=== PATIENT | female | born 1945 | race Caucasian/White ===

== ENCOUNTER → 2019-12-28 09:22 | Outpatient (BNVA) | payer OTHER, SELFPAY | PROVIDERS: PCP Internal Medicine; Referring Provider Internal Medicine; Visit Provider Obstetrics & Gynecology | DX: Z76.89 Persons encountering health services in other specified circumstances (principal) ==

== ENCOUNTER → 2021-01-30 08:20 | Outpatient (BNVA) | payer OTHER, SELFPAY | PROVIDERS: PCP Internal Medicine; Visit Provider Obstetrics & Gynecology ==

== ENCOUNTER → 2022-05-07 11:38 | Outpatient (BNVA) | payer OTHER, SELFPAY | PROVIDERS: PCP Internal Medicine; Visit Provider Obstetrics & Gynecology | DX: M81.0 Age-related osteoporosis without current pathological fracture (principal) | CPT/HCPCS: 99212 ==

== ENCOUNTER 2023-02-09 09:53 | Outpatient (AMB) | payer OTHER, SELFPAY ==
[2023-02-09 09:57] VITALS: BP 128/72; BMI 23.4
--- NOTE | 2023-02-09 09:57 | MHC.OFFVIS ---
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 Last Pap smear was in 2011 was negative, no history of abnormal Pap smear last 25 years.? Last mammogram was a year ago Last colonoscopy was 5 years ago, the patient is due for a screening colonoscopy , had a negative Cologuard this year an will be scheduling a screening colonoscopy soon. Last DEXA scan was in 04/16 which showed a T-score at the spine in femur level 1.3/1.9 respectively. BMD at this fine level was +than% from baseline and +2.8% from previous, at the femur level was -6.4 from baseline and-3.7 from previous DEXA scan. Ten year FRAX risk for major osteoporosis and fracture was 13/3.2%, the patient was prescribed alendronate and developed bone pain at the side effects, then was referred to Rheumatology but the appointment was canceled [facility] Medical History High cholesterol History of skin cancer Family History Father Colon cancer Mother Pancreatic cancer Social History Alcohol intake: never Patient Tobacco Use Status: Never used Tobacco Patient : No Sexual orientation: Straight/Heterosexual Gender identity: Female Female Reproductive History Menstrual Age of Menarche: 10 control method: none Total pregnancies: 0 Date of last pap smear: 10/16/11 (negative) Date of last Bone Density Screenin04/01/22 Review of Systems Const All systems reviewed & are unremarkable except as noted in HPI and below Card Reports as per HPI Resp Reports as per HPI GI Reports as per HPI and Reports no additional complaints Reports as per HPI Physical Exam Vital Signs: Last Vital Signs BP 128/72 02/09/23 09:57 BMI result Body Mass Index 23.4 Const General: cooperative, healthy appearing and comfortable Chest Chest palpation & inspection: normal inspection of the chest and normal palpation of entire chest wall Breast/axilla inspection: normal inspection of the breasts and normal inspection of the axillae Breast/axilla palpation: normal palpation of the breasts, normal palpation of the axillae and no axillary lymphadenopathy Resp Effort & Inspection: normal respiratory effort Auscultation: clear to auscultation bilaterally Percussion: percussion normal Cardio Palpation: normal PMI Rate: regular rate Rhythm: regular rhythm Heart sounds: no murmurs and no rubs Peripheral pulses: Peripheral pulses 2+ throughout GI Inspection: Yes normal to inspection Palpation (GI): Soft to palpation, nontender, no guarding, not rigid and No hepatosplenomegaly present Percussion: Yes normal to percussion Auscultation: normal bowel sounds Rectal Exam - Female: deferred General: Yes bladder normal to palpation External Female Exam: No lesion Speculum Exam - Vagina: normal appearance of the vagina, normal palpation, normal vaginal discharge and not erythematous Speculum Exam - Cervix: normal appearance of the cervix and normal palpation Bimanual exam- vagina & uterus: normal bimanual exam, normal palpation, uterine size normal, bladder normal to palpation, consistency normal and normal palpation Bimanual Exam- Adnexa, other: normal adnexae, no masses and no tenderness Assessment & Plan Assessment & Plan (1) Well woman exam: Code(s): Z01.419 - Encounter for gynecological examination (general) (routine) without abnormal findings Plan: Co testing not indicated since the patient 's age is above 65 with no history of abnormal Pap smears last 25 years. Counseled the patient about the recommended dietary allowance of 1200 mg of Calcium & 800 IU of vitamin D. Instruction given the patient to schedule her next screening Mammogram. The patient was instructed to perform monthly self-breast exams and to schedule a 2 week DEXA scan follow-up appointment and an annual exam in a year; All questions answered and the patient verbalized understanding. (2) At risk of fracture due to osteoporosis: Code(s): M81.0 - Age-related osteoporosis without current pathological fracture; Z91.89 - Other specified personal risk factors, not elsewhere classified Plan: Discussed with the patient the DEXA results and FRAX risk. Since risk of fracture above 3% explained to the patient that there is an indication for treatment for NOF guidelines. Discussed with the patient all the options for therapeutic treatment including mechanism of actions, risks and benefits of Bisphosphonates (benefits=osteoporosis prevention; Risks=GERD, osteonecrosis of jaw), Raloxifene, (benefits=osteoporosis prevention and breast ca risk reduction; Risks=DVT), Forteo. Since the patient develops side effects on alendronate, recommended for the patient to see Rheumatology, referral is in place, the patient requested to call back to set up rheumatology appointment, understands indication 40 therapeutic option to decrease the risk of hip fracture lines potential consequences. Also Caltrate+D 600 mg x2/day was recommended to the patient. Orders: Orders MM tomosynthesis screening BI Today Z12.31 - Encounter for screening mammogram for malignant neoplasm of breast Coding Level of Care Code Est Pt Prev Care >65y(52418) Diagnoses Well woman exam Z01.419 At risk of fracture due to osteoporosis M81.0; Z91.89
== END 2023-02-09 13:01 | disposition home or self-care (01) ==
PROVIDERS: Visit Provider Obstetrics & Gynecology
DX: Z01.419 Encounter for gynecological examination (general) (routine) without abnormal findings (principal); M81.0 Age-related osteoporosis without current pathological fracture; Z91.89 Other specified personal risk factors, not elsewhere classified
CPT/HCPCS: 99397

== ENCOUNTER → 2023-02-09 09:53 | Outpatient (BNVA) | payer OTHER, SELFPAY | PROVIDERS: Visit Provider Obstetrics & Gynecology ==

== ENCOUNTER 2024-02-29 09:38 | Outpatient (AMB) | payer OTHER, SELFPAY ==
--- NOTE | 2024-02-29 09:43 | MHC.OFFVIS ---
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 Last Pap smear was in 2011 was negative, no history of abnormal Pap smear last 25 years.? Last mammogram was a year ago, no records available but while negative according to the patient. Last colonoscopy was 5 years ago, the patient is due for next screening colonoscopy. Last DEXA scan was 2 years ago [facility] Medical History High cholesterol History of skin cancer Family History Father Colon cancer Mother Pancreatic cancer Social History Alcohol intake: never Patient Tobacco Use Status: Never used Tobacco Sexual orientation: Straight/Heterosexual Gender identity: Female Female Reproductive History Menstrual Age of Menarche: 10 Review of Systems Const All systems reviewed & are unremarkable except as noted in HPI and below Card Reports as per HPI Resp Reports as per HPI GI Reports as per HPI and Reports no additional complaints Reports as per HPI Physical Exam Vital Signs: Last Vital Signs BP 120/68 02/29/24 09:47 BMI result Body Mass Index 24.0 Const General: cooperative, healthy appearing and comfortable Chest Chest palpation & inspection: normal inspection of the chest and normal palpation of entire chest wall Breast/axilla inspection: normal inspection of the breasts and normal inspection of the axillae Breast/axilla palpation: normal palpation of the breasts, normal palpation of the axillae and no axillary lymphadenopathy Resp Effort & Inspection: normal respiratory effort Auscultation: clear to auscultation bilaterally Percussion: percussion normal Cardio Palpation: normal PMI Rate: regular rate Rhythm: regular rhythm Heart sounds: no murmurs and no rubs Peripheral pulses: Peripheral pulses 2+ throughout GI Inspection: Yes normal to inspection Palpation (GI): Soft to palpation, nontender, no guarding, not rigid and No hepatosplenomegaly present Percussion: Yes normal to percussion Auscultation: normal bowel sounds Rectal Exam - Female: deferred General: Yes bladder normal to palpation External Female Exam: No lesion Speculum Exam - Vagina: normal appearance of the vagina, normal palpation, normal vaginal discharge and not erythematous Speculum Exam - Cervix: normal appearance of the cervix and normal palpation Bimanual exam- vagina & uterus: normal bimanual exam, normal palpation, uterine size normal, bladder normal to palpation, consistency normal and normal palpation Bimanual Exam- Adnexa, other: normal adnexae, no masses and no tenderness Assessment & Plan Assessment & Plan (1) Well woman exam: Code(s): Z01.419 - Encounter for gynecological examination (general) (routine) without abnormal findings Category: Medical Plan: Co testing not indicated since the patient 's age is above 65 with no history of abnormal Pap smears last 25 years. Counseled the patient about the recommended dietary allowance of 1200 mg of Calcium & 800 IU of vitamin D. Mammogram ordered. Counseled the patient about the indication for screening colonoscopy , all pros and cons risks and benefits of the procedure were discussed with the patient, the patient is to think about it and get back to us. Will order DEXA scan . The patient was instructed to perform monthly self-breast exams and to schedule a 2 week DEXA scan follow-up appointment and an annual exam in a year; All questions answered and the patient verbalized understanding. Orders: Orders XR DEXA axial skeleton Today Z78.0 - Asymptomatic menopausal state MM tomosynthesis screening BI Today Z12.31 - Encounter for screening mammogram for malignant neoplasm of breast Coding Level of Care Code Est Pt Prev Care >65y(08587) Diagnoses Well woman exam Z01.419
[2024-02-29 09:47] VITALS: BP 120/68; BMI 24.0
== END 2024-02-29 10:23 | disposition home or self-care (01) ==
LOC: HO.HWS 09:38
PROVIDERS: PCP Internal Medicine; Visit Provider Obstetrics & Gynecology
DX: Z01.419 Encounter for gynecological examination (general) (routine) without abnormal findings (principal)
CPT/HCPCS: 99397; 99459

== ENCOUNTER → 2024-02-29 09:38 | Outpatient (BNVA) | payer OTHER, SELFPAY | PROVIDERS: PCP Internal Medicine; Visit Provider Obstetrics & Gynecology | DX: Z01.419 Encounter for gynecological examination (general) (routine) without abnormal findings (principal); Z78.0 Asymptomatic menopausal state | CPT/HCPCS: 99397; 99459 ==

== ENCOUNTER → 2024-05-15 10:57 | Outpatient (BNVA) | payer OTHER, SELFPAY | PROVIDERS: PCP Internal Medicine; Visit Provider Obstetrics & Gynecology ==

== ENCOUNTER 2024-05-25 09:28 | Outpatient (AMB) | payer OTHER, SELFPAY ==
--- NOTE | 2024-05-25 09:28 | MHC.OFFVIS ---
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 T score @ spine and femoral Neck respectively were=+1.8 /-1.9and 10 year FRAX risk = 144.3.7% for severe osteoporosis and fracture. The patient was started on alendronate 2 years ago and developed severe bone pain and discontinued it PFSH Medical History High cholesterol History of skin cancer Family History Father Colon cancer Mother Pancreatic cancer Social History Alcohol intake: never Patient Tobacco Use Status: Never used Tobacco Sexual orientation: Straight/Heterosexual Gender identity: Female Female Reproductive History Menstrual Age of Menarche: 10 Review of Systems Const All systems reviewed & are unremarkable except as noted in HPI and below Reports as per HPI and Reports no additional complaints GI Reports no additional complaints Reports no additional complaints Telehealth Telehealth Telehealth Platform: Telephone Location of provider rendering services: practice address Location of patient: address on file Patient Identification confirmed using: Name, : Yes Telehealth method: video Patient verbally consented to treatment: Yes Patient verbally consented to billing insurance company: Yes Patient informed of any privacy concerns related to visit: Yes Minutes spent on Phone/Video with Pt.: 10 Assessment & Plan Assessment & Plan (1) High risk for fracture due to osteoporosis by DEXA scan: Code(s): M81.0 - Age-related osteoporosis without current pathological fracture Category: Medical Plan: Discussed with the patient the results of DEXA scan with a FRAX fracture of 3.7% is an indication for therapeutic treatment. Since the patient developed bone pain related to alendronate, recommended to the patient the rheumatology referral (placed). All questions answered, the patient verbalized understanding. Instructed the patient to call our office back in case a referral appointment is not scheduled, missed or canceled so that we will assist on rescheduling another appointment, the patient verbalized understanding agreed with the plan. I spent a total of 20 minutes reviewing the chart, talking to the patient via video and documenting in the medical record. Orders: Referrals Rheumatology Referral M81.0 - Age-related osteoporosis without current pathological fracture Coding Level of Care Code Tele Est Pt Level 3 (55426) Diagnoses High risk for fracture due to osteoporosis by DEXA scan M81.0
--- OUTSIDE RECORDS SUMMARY | 2024-05-25 09:56 | XMS_ITS ---
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 Phone iTm Collins MD Primary Care Provider Jim Mederos Unavailable [phone] Allergies No Known Allergies REASON FOR VISIT At Risk Footcare, Painful Nail(s) aggrevated by shoes and causing difficulty standing/walking., Skin Problem Medications Medication SIG (Take, Route, Frequency, Duration) Notes Start Date End Date Status Ciclopirox Olamine 0.77 % 1 application Externally Twice a day to skin of feet including between the toes for 30 days Active Celecoxib 200 MG 1 capsule with food Orally Once a day Active Rosuvastatin Calcium 5 MG 1 tablet Orally Once a day Active Social History Tobacco Use: Social History Observation Description Date Details (start date - stop date) Never Smoker NA - NA Tobacco Use/Smoking Question Answer Notes Are you a: nonsmoker Additional Findings: Tobacco Non-User Current no n-smoker Tobacco use other than smoking: Question Answer Notes Are you an other tobacco user? No Vital Signs Height 5ft 2in in 12/10/2023 Weight 125 lbs 12/10/2023 BMI 22.86 kg/m2 12/10/2023 Procedures Procedure Date Ordered Date Performed Result Body Sit e 36358-GSSNFUB NAIL, 1-5 12/10/2023 N/A 13920-QNPW SKIN LESIONS, OVER 4 12/10/2023 N/A W8416-NOWBWSBT DYSTROPHIC NAILS ANY # 12/10/2023 N/A Encounters Encounter Location Date Provider Diagnosis [facility] [address] [place] [address] 12/10/2023 Jim Campoverde Atherosclerosis of [place] artery of both lower extremities, with unspecified presence of clinical manifestation I70.203 ; Tinea unguium B35.1 ; Pain in right toe(s) M79.674 ; Pain in left toe(s) M79.675 and Tinea pedis of both feet B35.3 Assessments Encounter Date Diagnosis (ICD Code) Assessment Notes Treatment Notes Treatment Clinical Notes Section Notes 12/10/2023 Atherosclerosis of [place] artery of both lower extremities, with unspecified presence of clinical manifestation (ICD-10 - I70.203) 12/10/2023 Tinea unguium (ICD-10 - B35.1) 12/10/2023 Pain in right toe(s) (ICD-10 - M79.674) 12/10/2023 Pain in left toe(s) (ICD-10 - M79.675) 12/10/2023 Tinea pedis of both feet (ICD-10 - B35.3) Plan Of Treatment Medication Medication Name Sig Start Date Stop Date Notes Ciclopirox Olamine 0.77 % 1 application Externally Twice a day to skin of feet including between the toes for 30 days Pending Test Test Name Order Date 93077-WJFOSYY NAIL, 1-5 12/10/2023 36765-MPTM SKIN LESIONS, OVER 4 12/10/19 24 W1189-TWOFUQLX DYSTROPHIC NAILS ANY # Next Appt Details Follow Up: prn, Reason: Provider Name:Jim Vick Gilles , 06/16/2024 11:15:00 AM, [address] [place], [address], Procedure Notes * Category Sub-Category Detail Notes Keratoma Treatment Parring or Cutting o f Benign Hyperkeratotic Lesion(s) (-57) More than 4 Lesions - The Benign hyperkeratotic lesions, as described above were pared, and/or cut utilizing a sterile 15 blade, tissue nippers, and/or dremel - 17752 , Q8 Debride Nails 1-5 Procedure: Performance of this nail treatment by a nonprofessional would put this patients foot and overall health at risk. Therefore, nail debridement was performed extensively to reduce/remove overall nail length, girth, thickness, subungual debris, and necrotic tissue, by manual and/or electrical means through the use of a nail nipper and/or dremel-type glaze grinder, to a more viable healthy nail plate or bed tissue 1-5. Silver nitrate used for any petechial bleeding as necessary. Definitive antifungal treatment options have been reviewed and discussed with the patient. The patient chooses, no pharmaceutical tx - 04735 Nail Reduction Nail Reduction (-27) Trimming o f dystrophic nails performed to reduce/remove overall nail length and girth, by manual and electrical means with use of a nail nipper and/or dremel, to more viable healthy nail plate or bed tissue, any number - G0127 , Q8 Progress Notes * Antoinette FISHER MDOB: (78 yo F)Acc No.[id number]:12/10/2023 Progress Note Patient:?Antoinette FISHER Provider:?Jim Campoverde DPM :1945???Age:78 Y???Sex:Female D ate:12/10/2023 Address:[address] [place], [place] [id number] Pcp:Tim Collins MD Subjective: * Chief Complaints: * ???At Risk FootcarePainful N ail(s) aggrevated by shoes and causing difficulty standing/walking.Skin Problem * HPI: ???At Risk footcare:?Pt States Last PCP Visit:?Date?11/23/2023 ???Skin problems:?Nature:?scaling , redness.?Location:?B/L .?Duration:?several days.?Course:?worse.? * ROS:?General/Constitutional:?Nausea?denies.?Vomiting?denies.?Hunger Thirst?denies.?Loss appetite?denies.?Chills?denies.?Fatigue?denies.?Fever?denies.?Night Sweats?denies.?Unexplained weight loss?denies.?Unexplained weight gain?denies.?HEENTM:?Dentures?denies.?Dizziness?denies.?Glasses/contacts?denies.?Retinopathy?de nies.?Blurred/double vision?denies.?TMJ?denies.?Discharge/drainage?denies.?Implants?denies.?Sore throat?denies.?Dental implants?denies.?Hard of hearing ?denies.?Difficulty chewing/swallowing/speaking?denies.?Nose bleeds?denies.?Sore mouth?denies.?Respiratory:?On Oxygen?denies.?Pneumonia/pleurisy?denies.?Bronchitis?denies.?Emphysema?denies.?C oughing?denies.?Cough blood?denies.?Shortness of breath?denies.?Wheezing?denies.?Cardiovascular:?Pacemaker?denies.?MVP?denies.?WPW?denies.?CHF?denies.?Heart attack?denies.?Septal defect?denies.?Rapid beat?denies.?Chest pain ?denies.?Atrial Fib.?denies.?Murmur/Palpitations?denies.?Gastrointestinal:?Hemorrhoids?denies.?Stomach/Abdominal pain?denies.?Dark blood stool?denies.?Irritable bowel ?denies.?Constipation?denies.?Diarrhea?denies.?Hematology:?Swelling?denies.?Clots?denies.?Varicose Veins?admits.?Bruising?denies.?Bleeding problem?denies.?Genitourinary:?Blood urine?denies.?Frequent/Painfu/urination/bladder control?denies.?Kidney stones?denies.?Infection (UTI)?denies.?Nephropathy?denies.?sex trans dis (STD)?denies.?Prostate?denies.?Musculoskeletal:?Hammertoes?admits.?Bunions?admits.?Back Pain?admits.?Muscle Cramps/ Resting?denies.?Muscle cramps / walking?denies.?Generalized aches and pains?admits.?Weakness?denies.?Integ.:?Joyce?denies.?Scars?denies.?Corns/calluses?admits.?Ingrown nails?admits.?Painful nails?admits.?Open Sores?denies.?Rashes?denies.?Neurologic:?Difficulty sleeping?denies.?Brain disorder?denies.?Numbness?denies.?Balance trouble?denies.?Confusion?denies.?Fainting/blackouts?denies.?Tingling?denies.?Tr emors?denies.? * Medical History:? * Surgical History:?Denies Pas t Surgical History * Hospitalization/Major Diagno stic Procedure:?Denies Past Hospitalization * Family History:?Mother: dece ased, Cancer, diagnosed with Family history of arthritis, Other malignant neoplasm of unspecified site.?Father: , Cancer, diagnosed with Other malignant neoplasm of unspecified site.?Spouse: .? * Social History:?Tobacco Use:?Tobacco Use/Smoking?Are you a:?nonsmoker ?Additional Findings: Tobacco Non-User?Current non-smoker ?Tobacco use other than smoking?Are you an other tobacco user??No ???Miscellaneous:?Caffeine: yes, frequency: , 1-2 cups per day. ?Exercise: yes, Line Dancing, Archery. ?Marital status: . ?Occupation: Retired. * Medications:?TakingRosuvasta tin Calcium 5 MG Tablet 1 tablet Orally Once a day Celecoxib 200 MG Capsule 1 capsule with food Orally Once a day Medication List reviewed and reconciled with the patientTaking Rosuvastatin Calcium 5 MG Tablet 1 tablet Orally Once a day Taking Celecoxib 200 MG Capsule 1 capsule with food Orally Once a day Medication List reviewed and reconciled with the patient * Allergies:?N.K.D.A.yes[Aller gies Verified] Objective: * Vitals:?Ht: 5ft 2in, Wt: 125 , BMI: 22.86, Shoe size: 7, Ht-cm: 157.48 cm, Wt-k.7 kg. * Examination: ???Vascular: ?DP PULSES (B):? 0/4, B/L.?PT PULSES (B):?1/4, B/L.?CAPILLARY FILL TIME:? delayed, all digits, B/L.?TROPHIC CONDITION-TEXTURE/ELASTICITY/TURGOR/HAIR GROWTH (B):? decreased, fragile, thin, skin, with sparse to absent hair growth, B/L.?TEMPERTURE GRADIENT (C):? decreased, cool to cool, proximal to distal, B/L.?PIGMENTATION:?mottled, B/L.?EDEMA (C):?absent, B/L.?CLAUDICATION (C):?denies, B/L.?REST PAIN:?denies, B/L.?Nails: ?NAILS are:?Elongated, overgrown, dystrophic, lytic, greater than 3mm thick, discolored and friable with crumbly malodorous subungual debris, with pain on palpation , T4 , T5 , T6, T7 , T9 , remaining nails are elongated, overgrown, dystrophic.?Dermatologic: ?SKIN FINDINGS:?Skin exam reveals Keratotic lesion(s) located at , Medial plantar , IPJ , TA , Medial plantar , IPJ , T5 , SUB MTH (s) , 1 , B/L , SUB MTH (s) , 2 , SUB MTH (s) , 5 , B/L , Skin shows sign(s) of, erythema, scaling, in a moccasin fashion, no fissure(s) present, B/L.? Assessment: * Assessment: 1.?Tinea unguium - B35.1???2 .?Atherosclerosis of [place] artery of both lower extremities, with unspecified presence of clinical manifestation - I70.203 (Primary)???3.?Pain in right toe(s) - M79.674???4.?Pain in left toe(s) - M79.675 ??5.?Tinea pedis of both feet - B35.3???Specify :Acute problem, Uncomplicated (3),Rx drug management (4)??? Plan: * Treatment: 2.?Tinea unguium?Procedure: 83823-IYXUMDK NAIL, 1-5 3.?Tinea pedis of both feet? Start Ciclopirox Olamine Cream, 0.77 %, 1 application, Externally, Twice a day to skin of feet including between the toes, 30 days, 60, Refills 2.?? * Procedures:?Debride Nails 1-5:?Procedure:?Performance of this nail treatment by a nonprofessional would put this patients foot and overall health at risk. Therefore, nail debridement was performed extensively to reduce/remove overall nail length, girth, thickness, subungual debris, and necrotic tissue, by manual and/or electrical means through the use of a nail nipper and/or dremel-type glaze grinder, to a more viable healthy nail plate or bed tissue 1-5. Silver nitrate used for any petechial bleeding as necessary. Definitive antifungal treatment options have been reviewed and discussed with the patient. The patient chooses, no pharmaceutical tx - 55388.?Keratoma Treatment:?Parring or Cutting of Benign Hyperkeratotic Lesion(s)?(-57) More than 4 Lesions - The Benign hyperkeratotic lesions, as described above were pared, and/or cut utilizing a sterile 15 blade, tissue nippers, and/or dremel - 85963 , Q8.?Nail Reduction:?Nail Reduction?(-27) Trimming of dystrophic nails performed to reduce/remove overall nail length and girth, by manual and electrical means with use of a nail nipper and/or dremel, to more viable healthy nail plate or bed tissue, any number - G0127 , Q8.? * Procedure Codes:?G0127 PARVEEN ING DYSTROPHIC NAILS ANY #, Modifiers: XS , [id number] DEBRIDE NAIL, 1-5, Modifiers: XS 26909 TRIM SKIN LESIONS, OVER 4, Modifiers: XS , Q8 * Preventive Medicine:? ??Counseling:?Discussion:?-13: Office or other outpatient visit for the evaluation and management of an established patient, which required a medically appropriate history and/or examination and LOW level of DECISION MAKING for: 1 STABLE ACUTE UNCOMPLICATED PROBLEM, 2 OR MORE MINOR PROBLEMS, OR 1 STABLE CHRONIC PROBLEM, THAT POSE(S) A LOW RISK FOR MORBIDITY/MORTALITY. The visit on the day of the encounter encompassed interpreting the data and educating the patient as to the nature of their condition, treatment options available according to their individual PMH, meds, allergies, and overall health/living conditions, as well as any potential risks or complications that may occur from a failure to adhere to, and participate in, the recommended course of therapy. The discussion included a complete verbal, and/or written explanation of the examination results, any x-rays taken, the proposed diagnosis, and outline of the treatment plan. A schedule for future care needs was also explained. The patient verbalized an understanding of the instructions at this time and agreed to be an active participant in their treatment. If the patient should think of any questions or concerns after the visit, I have encouraged the patient to call the office.?Tinea Pedis:?The patient was counseled on the diagnosis, potential etiologies, and treatment options for their skin condition. We discussed the risks and benefits of each option from performing no treatment, to utilizing OTC topical skin creams, prescription topical creams, customized compounded topical medications, and, if necessary, to utilize oral antifungal therapy. We discussed the advantages and disadvantages of each possible treatment and importance for adherence to all the recommended therapies for optimum success and avoid potential complications such as open sore/infection/possible hospitalization. We discussed the potential effectiveness of each topical preparation as well as each ones possible side effects and/or patient medication interactions if oral therapy is selected. Patient questions re: the advantages and disadvantages of each treatment choice, medication use/dosage, successful outcomes, and application consistency were reviewed and the patient verbalized that all answers were clearly understood. The patient was told they can help alleviate symptoms by utilizing moisture absorbant innersoles with activated charcoal and baking soda, applying antifungal sprays daily, aerating toe web spaces at night by putting cotton or lambs wool between the toes, alternating shoe gear daily if possible so they can dry out, changing socks at least once during the day, wearing well-ventilated shoes or sandals. The patient has decided to apply antifungal skin creams to their feet as directed. Rx was sent to their pharmacy at the time of visit.? ??Screening/Special Tests:?Fall Risk?Screening:?No falls in the past year ?FALLS: Screening for Future Fall Risk?Have you had any falls with injury in the past year??No * Follow Up:?prn * Images: * Sign off status: Completed true * Provider:?Jim Campoverde DPM Date:?2023 Generated for Catalina griffiths/Celestina/Jose on:?05/25/2024 09:56 AM EDT History and Physical Notes * HPI (History of Present Illness) Category Sub-Category Detail Notes Category Not es Skin problems Nature: scaling , redness Location: B/L Duration: several days Course: worse At Risk footcare Pt States Last PCP Visit: Date: 4 Examination Category Sub-Category Detail Notes Category Not es Dermatologic SKIN FINDINGS: Skin exam reveal s Keratotic lesion(s) located at , Medial plantar , IPJ , TA , Medial plantar , IPJ , T5 , SUB MTH (s) , 1 , B/L , SUB MTH (s) , 2 , SUB MTH (s) , 5 , B/L , Skin shows sign(s) of, erythema, scaling, in a moccasin fashion, no fissure(s) present, B/L Vascular DP PULSES (B): 0/4, B/L PT PULSES (B): 1/4, B/L CAPILLARY FILL TIME: delayed, all digits , B/L TEMPERTURE GRADIENT (C): decreased, cool to cool, proximal to distal, B/L TROPHIC CONDITION-TEXTURE/ELASTICITY/TURGOR/HAIR GROWTH (B): decreased, fragile, thin, skin, with spa rse to absent hair growth, B/L EDEMA (C): absent, B/L CLAUDICATION (C): denies, B/L REST PAIN: denies, B/L PIGMENTATION: mottled, B/L Nails NAILS are: Elongated, overg rown, dystrophic, lytic, greater than 3mm thick, discolored and friable with crumbly malodorous subungual debris, with pain on palpation , T4 , T5 , T6, T7 , T9 , remaining nails are elongated, overgrown, dystrophic
--- OUTSIDE RECORDS SUMMARY | 2024-05-25 09:56 | XMS_ITS | Patient Health Record ---
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071) Referring Provider First Name Tim Referring Provider Last Name Karina Referred [facility] Referred Provider Jim Campoverde Referred Address [address] [facility],[place], [place],[address], Referred Provider Specialty Podiatry Referral Priority Routine Medications Medication SIG (Take, Route, Frequency, Duration) Notes Start Date End Date Status Ciclopirox Olamine 0.77 % APPLY TWO TIME S A DAY TO SKIN OF FEET INCLUDING BETWEEN THE TOES for 30 Active Rosuvastatin Calcium 5 MG 1 tablet Orally Once a day Active Celecoxib 200 MG 1 capsule with food Orally Once a day Active Social History Tobacco Use: Social History Observation Description Date Details (start date - stop date) Never Smoker NA - NA Tobacco Use/Smoking Question Answer Notes Are you a: nonsmoker Additional Findings: Tobacco Non-User Current no n-smoker Alcohol Screen Question Answer Notes Did you have a drink contain ing alcohol in the past year? Yes How often did you have a dri nk containing alcohol in the past year? Monthly or less (1 point) Points 1 Interpretation Negative Tobacco use other than smoking: Question Answer Notes Are you an other tobacco user? No Problems Problem Type SNOMED Code ICD Code Onset Dates Problem Status W/U Status Risk Notes Problem Atherosclerosis of [place] arteries of the extremities (308320074362970) Atherosclerosis of [place] artery of both lower extremities, with unspecified presence of clinical manifestation (I70.203) Active confirmed Vital Signs Blood pressure diastolic 70 mm Hg 03/10/2024 Height 5ft 2in in 03/10/2024 Blood pressure systolic 116 mm Hg 03/10/2024 Weight 129 lbs 03/10/2024 BMI 23.59 kg/m2 03/10/2024 Procedures Procedure Date Ordered Date Performed Result Body Sit e 60135-GBWNXQX NAIL, 1-5 06/11/2023 N/A 08131-YAWU SKIN LESIONS, OVER 4 06/11/2023 N/A J0524-OASRCTGS DYSTROPHIC NAILS ANY # 06/11/2023 N/A 23721-UEOFTGG NAIL, 1-5 09/03/2023 N/A 81804-FACY SKIN LESIONS, OVER 4 09/03/2023 N/A X2443-FGXWSPEQ DYSTROPHIC NAILS ANY # 09/03/2023 N/A 70265-IAPZTJE NAIL, 1-5 12/10/2023 N/A 43470-JKGT SKIN LESIONS, OVER 4 12/10/2023 N/A X9290-CVDECAXE DYSTROPHIC NAILS ANY # 12/10/2023 N/A 70566-QEVCJEB NAIL, 1-5 03/10/2024 N/A 71188-FNCA SKIN LESIONS, OVER 4 03/10/2024 N/A D6296-OOJHTAAZ DYSTROPHIC NAILS ANY # 03/10/2024 N/A Encounters Encounter Location Date Provider Diagnosis [facility] [address] [place] [address] 06/11/2023 Jim Campoverde Atherosclerosis of [place] artery of both lower extremities, with unspecified presence of clinical manifestation I70.203 ; Tinea unguium B35.1 ; Pain in right toe(s) M79.674 and Pain in left toe(s) M79.[address] [address] 09/03/2023 Jim Gilles Atherosclerosis of [place] artery of both lower extremities, with unspecified presence of clinical manifestation I70.203 ; Tinea unguium B35.1 ; Pain in right toe(s) M79.674 and Pain in left toe(s) M79.[address] [address] 12/10/2023 Jim Gilles Atherosclerosis of [place] artery of both lower extremities, with unspecified presence of clinical manifestation I70.203 ; Tinea unguium B35.1 ; Pain in right toe(s) M79.674 ; Pain in left toe(s) M79.675 and Tinea pedis of both feet B35.[address] [address] 03/10/2024 Jim Gilles Atherosclerosis of [place] artery of both lower extremities, with unspecified presence of clinical manifestation I70.203 ; Tinea unguium B35.1 ; Pain in right toe(s) M79.674 ; Pain in left toe(s) M79.675 and Tinea pedis of both feet B35.3 Assessments Encounter Date Diagnosis (ICD Code) Assessment Notes Treatment Notes Treatment Clinical Notes Section Notes 06/11/2023 Tinea unguium (ICD-10 - B35.1) 06/11/2023 Atherosclerosis of [place] artery of both lower extremities, with unspecified presence of clinical manifestation (ICD-10 - I70.203) 09/03/2023 Tinea unguium (ICD-10 - B35.1) 09/03/2023 Atherosclerosis of [place] artery of both lower extremities, with unspecified presence of clinical manifestation (ICD-10 - I70.203) 12/10/2023 Tinea unguium (ICD-10 - B35.1) 12/10/2023 Atherosclerosis of [place] artery of both lower extremities, with unspecified presence of clinical manifestation (ICD-10 - I70.203) 03/10/2024 Tinea unguium (ICD-10 - B35.1) 03/10/2024 Atherosclerosis of [place] artery of both lower extremities, with unspecified presence of clinical manifestation (ICD-10 - I70.203) 12/10/2023 Pain in right toe(s) (ICD-10 - M79.674) 03/10/2024 Pain in right toe(s) (ICD-10 - M79.674) 06/11/2023 Pain in right toe(s) (ICD-10 - M79.674) 09/03/2023 Pain in right toe(s) (ICD-10 - M79.674) 09/03/2023 Pain in left toe(s) (ICD-10 - M79.675) 06/11/2023 Pain in left toe(s) (ICD-10 - M79.675) 12/10/2023 Pain in left toe(s) (ICD-10 - M79.675) 03/10/2024 Pain in left toe(s) (ICD-10 - M79.675) 03/10/2024 Tinea pedis of both feet (ICD-10 - B35.3) 12/10/2023 Tinea pedis of both feet (ICD-10 - B35.3) Plan Of Treatment Pending Test Test Name Order Date 33702-FNJHBJR NAIL, 1-12/11/2022 68945-TWOVKHG NAIL, 1-5 02/26/2023 29986-QOFKDHY NAIL, 1-5 06/11/2023 35574-BSKTKQU NAIL, 1-5 09/03/2023 22291-KJPJANK NAIL, 1-5 12/10/2023 01945-EQMHOCW NAIL, 1-5 03/10/2024 76995-PSDP SKIN LESIONS, OVER 4 03/10/19 25 34137-TTOJ SKIN LESIONS, OVER 4 12/10/19 24 41185-LNKL SKIN LESIONS, OVER 4 12/12/19 23 20140-NEEM SKIN LESIONS, OVER 4 09/03/19 24 50002-FJFB SKIN LESIONS, OVER 4 06/11/19 24 48092-KKGC SKIN LESIONS, OVER 4 02/26/19 24 M5929-KJAFEOYW DYSTROPHIC NAILS ANY # D1494-JATDHNUJ DYSTROPHIC NAILS ANY # C4130-QKUREVXN DYSTROPHIC NAILS ANY # H7179-EJZNXXRN DYSTROPHIC NAILS ANY # B3391-LFJUFIQS DYSTROPHIC NAILS ANY # H4075-YDEOLXMJ DYSTROPHIC NAILS ANY # Next Appt Details Provider Name:Jim Campoverde , 06/16/2024 11:15:00 AM, [address] [place] [address], [phone], Insurance Providers Payer Name Payer Address Payer Phone Subscriber Number Group Number Insured Name Patient Relationship to Insured Coverage Start Date Coverage End Date [facility] Plan [address] [place] [address] [id number] Antoinette Vyas Self - patient is the insured Medical (General) History Medical History History ICD Code Arthritis Back,Hip,and Knee pain Cataracts Osteoporosis Measles Mumps Chicken pox Cancer- skin CAD Surgical History Surgery Date(Month/Year)
--- OUTSIDE RECORDS SUMMARY | 2024-05-25 09:56 | XMS_ITS ---
Author Organization [facility] Address [address] [place] [address] Care Team Providers Care Perfumer Name Role Phone Tim Collins MD Primary Care Provider Jim Mederos Unavailable [phone] Encounters Encounter Location Date Provider Diagnosis [address] [address] 11/26/2023 Jim Campoverde Plan Of Treatment Next Appt Details Provider Name:Jim Campoverde , 06/16/2024 11:15:00 AM, [address] [place], [address], Progress Notes * Antoinette FISHER MDOB: (78 yo F)Acc No.[id number]:11/26/2023 Progress Note Patient:?Antoinette FISHER Provider:?Jim Campoverde DPM :1945???Age:78 Y???Sex:Female D ate:11/26/2023 Address: [address] [facility] [phone] Pcp:Tim Collins MD Subjective: * Chief Complaints: * ??? * Medical History:? Objective: * Vitals:? Assessment: Plan: * Treatment: * Images: * The named appointment provid er may or may not be the originator of this progress note, and it is not deemed complete until electronically signed by the appointment provider. Sign off status: Pending * Provider:?Jim Campoverde DPM Date:?2023 Generated for Catalina griffiths/Celestina/Jose on:?05/25/2024 09:56 AM EDT
--- OUTSIDE RECORDS SUMMARY | 2024-05-25 09:57 | XMS_ITS ---
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 Name Role Phone Tim Collins MD Primary Care Provider Jim Mederos Unavailable [phone] Allergies No Known Allergies REASON FOR VISIT At Risk Footcare, Painful Nail(s) aggrevated by shoes and causing difficulty standing/walking., Skin Problem Medications Medication SIG (Take, Route, Frequency, Duration) Notes Start Date End Date Status Rosuvastatin Calcium 5 MG 1 tablet Orally Once a day Active Ciclopirox Olamine 0.77 % 1 application Externally [...] No Vital Signs Height 5ft 2in in 03/10/2024 Weight 129 lbs 03/10/2024 BMI 23.59 kg/m2 03/10/2024 Blood pressure systolic 116 mm Hg 03/10/19 25 Blood pressure diastolic 70 mm Hg 025 Procedures Procedure Date Ordered Date Performed Result Body Sit e 87954-ETFXZMQ NAIL, 1-5 03/10/2024 N/A 62187-ZOOK SKIN LESIONS, OVER 4 03/10/2024 N/A O3706-OMEUXDYU DYSTROPHIC NAILS ANY # 03/10/2024 N/A Encounters Encounter Location Date Provider Diagnosis [facility] [address] [address] 03/10/2024 Jim Campoverde Atherosclerosis of apache artery of both lower extremities, with unspecified presence of clinical manifestation I70.203 ; Tinea unguium B35.1 ; Pain in right toe(s) M79.674 ; Pain in left toe(s) M79.675 and Tinea pedis of both feet B35.3 Assessments Encounter Date Diagnosis (ICD Code) Assessment Notes Treatment Notes Treatment Clinical Notes Section Notes 03/10/2024 Atherosclerosis of apache artery of both lower extremities, with unspecified presence of clinical manifestation (ICD-10 - I70.203) 03/10/2024 Tinea unguium (ICD-10 - B35.1) 03/10/2024 Pain in right toe(s) (ICD-10 - M79.674) 03/10/2024 Pain in left toe(s) (ICD-10 - M79.675) 03/10/2024 Tinea pedis of both feet (ICD-10 - B35.3) Plan Of Treatment Pending Test Test Name Order Date [id number] NAIL, 1-5 03/10/2024 72391-UBFT SKIN LESIONS, OVER 4 03/10/19 D1112-EKFESQBP DYSTROPHIC NAILS ANY # Next Appt Details Follow Up: prn, Reason: Provider Name:Jim Campoverde , 06/16/2024 11:15:00 AM, [address] [place] [address], [place], [address], Procedure Notes * Category Sub-Category Detail Notes Keratoma Treatment Parring or Cutting o f Benign Hyperkeratotic Lesion(s) (-57) More than 4 Lesions - Due to the at risk nature of the patients medical condition as documented in the exam findings, performance of this keratoderma treatment is medically necessary as its management by an unskilled/untrained nonprofessional would put this patients foot and overall health at risk. Therefore, the benign hyperkeratotic lesions, ( 8) in total, locations as stated and described in the exam ( Medial plantar , IPJ , TA , Medial plantar , IPJ , T5 , SUB MTH (s) , 1 , B/L , SUB MTH (s) , 2 , B/L, SUB MTH (s) , 5 , B/L), were pared, and/or cut utilizing a sterile 15 blade, tissue nippers, and/or power dremel instrumentation by the physician of record - 36562, Q8 Debride Nails 1-5 Procedure: Due to the cli nical pathology outlined in the exam findings, performance of this nail treatment is medically necessary as its management by an unskilled/untrained nonprofessional would put this patients foot and overall health at risk. Therefore, debridement to affected nail(s), as described in exam ( T4 , T5 , T6, T7 , T9 ), was performed exclusively by the physician of record to reduce/remove overall nail length, girth, thickness, subungual debris, and necrotic tissue, by manual and/or electrical means through the use of a nail nipper and/or dremel stylegrinder, to a more viable healthy nail plate or bed tissue 5 nails or fewer in number. Silver nitrate was used for any petechial bleeding as necessary. Definitive antifungal treatment options, both pharmaceutical and surgical, have been reviewed and discussed with the patient. The patient solely prefers the use of intermittent/as needed professional debridement services for their nail condition and understands that additional periodic treatments may be required as necessary to maintain effective symptomatic relief - 27441 Nail Reduction Nail Reduction (-27) Trimming o f all dystrophic nails - Due to the at risk nature of the patients medical condition as documented in the exam findings, performance of this nail treatment is medically necessary as its management by an unskilled/untrained nonprofessional would put this patients foot and overall health at risk. Therefore, the dystrophic nails, in locations as stated and described in the exam ( TA, T1, T2, T3, T8), were debrided by the phisician of record to reduce/remove overall nail length and girth, by manual and electrical means with use of a nail nipper and/or dremel, to more viable healthy nail plate or bed tissue - G0127, Q8 Progress Notes * Antoinette FISHER MDOB: (78 yo F)Acc No.[id number]:03/10/2024 Progress Notes Patient:?Antoinette FISHER Provider:?Jim Campoverde DPM :1945???Age:78 Y???Sex:Female D ate:03/10/2024 Address:[address] [id number] Pcp:Tim Collins MD Subjective: * Chief Complaints: * ???At Risk FootcarePainful N ail(s) aggrevated by shoes and causing difficulty standing/walking.Skin Problem * HPI: ???At Risk footcare:?Pt States Last PCP Visit:?Date?01/27/2024 ???Skin problems:?Treatments:?Medication (Ciclopirox Olamine 0.77 Cream), states adherence to recommended treatment application.? * ROS:?General/Constitutional:?Nausea?denies.?Vomiting?denies.?Hunger Thirst?denies.?Loss appetite?denies.?Chills?denies.?Fatigue?denies.?Fever?denies.?Night Sweats?denies.?Unexplained weight loss?denies.?Unexplained [...] Family History:?Mother: dece ased, Cancer, diagnosed with Other malignant neoplasm of unspecified site, Family history of arthritis.?Father: , Cancer, diagnosed with Other malignant neoplasm of unspecified site.?Spouse: .? * Social History:?Tobacco Use:?Tobacco Use/Smoking?Are you a:?nonsmoker ?Additional Findings: Tobacco Non-User?Current non-smoker ?Tobacco use other than smoking?Are you an other tobacco user??No * Medications:?TakingRosuvasta tin Calcium 5 MG Tablet 1 tablet Orally Once a day Celecoxib 200 MG Capsule 1 capsule with food Orally Once a day Ciclopirox Olamine 0.77 % Cream 1 application Externally Twice a day to skin of feet including between the toes Medication List reviewed and reconciled with the patientTaking Rosuvastatin Calcium 5 MG Tablet 1 tablet Orally Once a day Taking Celecoxib 200 MG Capsule 1 capsule with food Orally Once a day Taking Ciclopirox Olamine 0.77 % Cream 1 application Externally Twice a day to skin of feet including between the toes Medication List reviewed and reconciled with the patient * Allergies:?N.K.D.A.yes[Aller gies Verified] Objective: * Vitals:?Ht: 5ft 2in, Wt: 129 , BMI: 23.59, Shoe size: 7, BP: 116/70 mm Hg, Ht-cm: 157.48 cm, Wt-k.51 kg. * Examination: ???Vascular: ?DP PULSES (B):? [...] T5 , T6, T7 , T9 , all other nails not described with characteristics as possessing mycosis are elongated, overgrown, and dystrophic ( TA, T1, T2, T3, T8?).?Dermatologic: ?SKIN FINDINGS:?Skin exam reveals Keratotic lesion(s) located at , Medial plantar , IPJ , TA , Medial plantar , IPJ , T5 , SUB MTH (s) , 1 , B/L , SUB MTH (s) , 2 , B/L, SUB MTH (s) , 5 , B/L , Skin shows approximately 70-80 percent LESS, sign(s) of, erythema, scaling, in a moccasin fashion, no fissure(s) present, B/L.? Assessment: * Assessment: 1.?Tinea unguium - B35.1???2 .?Atherosclerosis of apache artery of both lower extremities, with unspecified presence of clinical manifestation - I70.203 (Primary)???3.?Pain in right toe(s) - M79.674???4.?Pain in left toe(s) - M79.675 ??5.?Tinea pedis of both feet - B35.3???Specify :Acute problem, Stable Response to treatment - Improvement??? Plan: * Treatment: 2.?Tinea unguium?Procedure: 88076-OSKOPIO NAIL, 1-5 * Procedures:?Debride Nails 1-5:?Procedure:?Due to the clinical pathology outlined in the exam findings, performance of this nail treatment is medically necessary as its management by an unskilled/untrained nonprofessional would put this patients foot and overall health at risk. Therefore, debridement to affected nail(s), as described in exam (?T4?,?T5?,?T6,?T7?,?T9?), was performed exclusively by the physician of record to reduce/remove overall nail length, girth, thickness, subungual debris, and necrotic tissue, by manual and/or electrical means through the use of a nail nipper and/or dremel stylegrinder, to a more viable healthy nail plate or bed tissue 5 nails or fewer in number. Silver nitrate was used for any petechial bleeding as necessary. Definitive antifungal treatment options, both pharmaceutical and surgical, have been reviewed and discussed with the patient. The patient solely prefers the use of intermittent/as needed professional debridement services for their nail condition and understands that additional periodic treatments may be required as necessary to maintain effective symptomatic relief - 97403.?Keratoma Treatment:?Parring or Cutting of Benign Hyperkeratotic Lesion(s)?(-57) More than 4 Lesions - Due to the at risk nature of the patients medical condition as documented in the exam findings, performance of this keratoderma treatment is medically necessary as its management by an unskilled/untrained nonprofessional would put this patients foot and overall health at risk. Therefore, the benign hyperkeratotic lesions, ( 8) in total, locations as stated and described in the exam (?Medial plantar?,?IPJ?,?TA?,?Medial plantar?,?IPJ?,?T5?,?SUB MTH (s)?,?1?,?B/L?,?SUB MTH (s)?,?2?,?B/L,?SUB MTH (s)?,?5?,?B/L), were pared, and/or cut utilizing a sterile 15 blade, tissue nippers, and/or power dremel instrumentation by the physician of record - 95630, Q8.?Nail Reduction:?Nail Reduction?(-27) Trimming of all dystrophic nails - Due to the at risk nature of the patients medical condition as documented in the exam findings, performance of this nail treatment is medically necessary as its management by an unskilled/untrained nonprofessional would put this patients foot and overall health at risk. Therefore, the dystrophic nails, in locations as stated and described in the exam (?TA, T1, T2, T3, T8), were debrided by the phisician of record to reduce/remove overall nail length and girth, by manual and electrical means with use of a nail nipper and/or dremel, to more viable healthy nail plate or bed tissue - G0127, Q8.? * Procedure Codes:?G0127 PARVEEN ING DYSTROPHIC NAILS ANY #, Modifiers: XS , [id number] DEBRIDE NAIL, 1-5, Modifiers: XS 61199 TRIM SKIN LESIONS, OVER 4, Modifiers: XS , Q8 * Preventive Medicine:? ??Counseling:?Discussion:?-12: Office or other outpatient visit for the evaluation and management of an established patient, which required a medically appropriate history and/or examination and STRAIGHTFORWARD level of MEDICAL DECISION MAKING, 1 SELF-LIMITED OR MINOR PROBLEM, MINIMAL- NO AMOUNT/COMPLEXITY OF DATA TO BE REVIEWED/ANALYZED, AND MINIMAL RISK OF COMPLICATION/MORBIDITY. The visit on the day of the [...] encouraged the patient to call the office.?Tinea Pedis:?Given recent successful results to treatment, The patient is to cont the rx cream as directed.? ??Screening/Special Tests:?Fall Risk?Screening:?No falls in the past year ?FALLS: Screening for Future Fall Risk?Have you had any falls with injury in the past year??No * Follow Up:?prn * Images: * Sign off status: Completed true * Provider:?Jim Campoverde DPM Date:?2024 Generated for Catalina griffiths/Celestina/Jose on:?05/25/2024 09:56 AM EDT History and Physical Notes * HPI (History of Present Illness) Category Sub-Category Detail Notes Category Not es Skin problems Treatments: Medication (Cicl opirox Olamine 0.77 Cream), states adherence to recommended treatment application At Risk footcare Pt States Last PCP Visit: Date: 01/27/2024 Examination Category Sub-Category Detail Notes Category Not es Dermatologic SKIN FINDINGS: Skin exam reveal s Keratotic lesion(s) located at , Medial plantar , IPJ , TA , Medial plantar , IPJ , T5 , SUB MTH (s) , 1 , B/L , SUB MTH (s) , 2 , B/L, SUB MTH (s) , 5 , B/L , Skin shows approximately 70-80 percent LESS, sign(s) of, erythema, scaling, in a moccasin [...] T5 , T6, T7 , T9 , all other nails not described with characteristics as possessing mycosis are elongated, overgrown, and dystrophic ( TA, T1, T2, T3, T8 )
== END 2024-05-25 10:03 | disposition home or self-care (01) ==
LOC: HO.HWS 09:28
PROVIDERS: PCP Internal Medicine; Visit Provider Obstetrics & Gynecology
DX: M81.0 Age-related osteoporosis without current pathological fracture (principal)
CPT/HCPCS: 98004